=== PATIENT | male | born 1945 | race Caucasian/White ===

== ENCOUNTER 2017-05-19 18:51 | Observation (INO) ==
[2017-05-19] MEDS ORDERED: ONDANSETRON 4 MG/2 ML VIAL IV STA (20:28)
[2017-05-19] MEDS ORDERED: SODIUM CHLORIDE 0.9% 2,000 ML IV STA (20:28)
[2017-05-19 20:52] LABS: Albumin 4.9 G/DL (3.4-5.0); Bilirubin,Total 0.8 MG/DL (0.2-1.0); Calcium 10.5 MG/DL (8.5-10.1); Osmolality,Calculated 276.4 MOS/KG (273-304); Potassium 4.1 MMOL/L (3.5-5.1); Total Protein 9.8 G/DL (6.4-8.3)
[2017-05-19 21:05] LABS: Basophils # 0.1 10*3/uL (0.0-0.2); Basophils % 0.3 % (0.0-0.8); Eosinophils % 0.3 % (0.00-10.9); Hematocrit 57.2 VOL% (42.0-52.0); Hemoglobin 19.5 GM/DL (14.0-18.0); Immature Granulocytes % 0.8 %; Immature Granulocytes Absolute 0.13 #; Lymphocytes # 1.1 10*3/uL (1.4-4.0); Lymphocytes % 7.3 % (21.2-54.2); Mean Corpuscular HGB Conc 34.1 GM/DL (32-36); Mean Corpuscular Hemoglobin 31 PG (27-34); Mean Corpuscular Volume 90.6 FL (87-102); Mean Platelet Volume 9.8 FL (9.6-12.0); Monocytes % 6.6 % (1.7-12.7); Neutrophils % 84.7 % (38.7-73.9); Platelet Count 201 T/CUMM (130-400); Red Blood Count 6.31 MC/CUMM (3.8-5.5); Red Cell Distribution Width 14.6 % (9.3-17.3); White Blood Count 15.4 T/CUMM (4-12)
[2017-05-19 21:08] LABS: Lactic Acid 3.1 MMOL/L (0.4-2.0)
[2017-05-19 21:23] LABS: Apearance,Urine Slightly Hazy (Clear); Bilirubin,Urine Negative (Negative); Blood, Urine Negative (Negative); Glucose,Urine (UA) Negative (Negative); Hyaline Casts,Urine 12 /LPF (0-3); Ketones,Urine Negative (Negative); Mucus,Urine Occasional /LPF (Occasional); Nitrite,Urine Negative (Negative); Protein,Urine 100 MG/DL; RBC,Urine 2 /HPF (0-4); Squamous Epithelial Cell,Urine Occasional /HPF (0-10); Urine Color Amber (Yellow); Urine Specific Gravity 1.023 (1.001-1.035); Urine Urobilinogen < 2.0 EU/DL (0.2-1.0); WBC,Urine 2 /HPF (0-6)
[2017-05-19] MEDS ORDERED: ONDANSETRON 4 MG/2 ML VIAL ONE (21:23)
[2017-05-19] MEDS ORDERED: LORazepam 2 MG/1 ML VIAL IV STA (21:44)
[2017-05-19] MEDS ORDERED: LORazepam 2 MG/1 ML VIAL ONE (21:51)
[2017-05-19] MEDS ORDERED: ONDANSETRON 4 MG/2 ML VIAL IV PRN (22:22)
[2017-05-19 22:46] LABS: Band Neutrophils 3 % (0-10); Lymphocytes 10 % (20-55); Platelet Estimate Normal; Segmented Neutrophils 73 % (50-85); Total Cells Counted 100
[2017-05-19] MEDS ORDERED: NON-FORMULARY MEDICATION (Esomeprazole Magnesium [Esomeprazole] 20 MG) PO SCH (23:45)
[2017-05-20 00:42] LABS: Albumin 3.9 G/DL (3.4-5.0); Bilirubin,Total 0.7 MG/DL (0.2-1.0); Calcium 8.6 MG/DL (8.5-10.1); Magnesium 1.5 MG/DL (1.8-2.4); Osmolality,Calculated 283.8 MOS/KG (273-304); Potassium 4.1 MMOL/L (3.5-5.1); Total Protein 7.5 G/DL (6.4-8.3)
[2017-05-20] MEDS: SODIUM CHLORIDE 0.9% 1,000 ML IV SCH ×2 (01:16→18:49)
[2017-05-20 03:38] LABS: Basophils % 0.3 % (0.0-0.8); Eosinophils # 0.1 10*3/uL (0.0-0.87); Eosinophils % 0.4 % (0.00-10.9); Hematocrit 51.5 VOL% (42.0-52.0); Immature Granulocytes % 0.5 %; Immature Granulocytes Absolute 0.07 #; Lymphocytes # 1.7 10*3/uL (1.4-4.0); Lymphocytes % 12.6 % (21.2-54.2); Mean Corpuscular Hemoglobin 31 PG (27-34); Monocytes # 1.3 10*3/uL (0.11-0.8); Monocytes % 9.3 % (1.7-12.7); Neutrophils # 10.3 10*3/uL (1.4-7.4); Neutrophils % 76.9 % (38.7-73.9); Platelet Count 171 T/CUMM (130-400); Red Blood Count 5.48 MC/CUMM (3.8-5.5); Red Cell Distribution Width 14.2 % (9.3-17.3); White Blood Count 13.4 T/CUMM (4-12)
[2017-05-20 04:48] LABS: Hypochromasia 1+; Lymphocytes 11 % (20-55); Platelet Estimate Normal; Segmented Neutrophils 80 % (50-85); Total Cells Counted 100
[2017-05-20] MEDS: METOPROLOL TARTRATE 50 MG TABLET PO SCH (09:02)
[2017-05-20] MEDS: PANTOPRAZOLE 40 MG TABLET PO SCH (09:02)
[2017-05-20] MEDS ORDERED: ASPIRIN EC 81 MG TABLET PO SCH (18:00)
[2017-05-20] MEDS ORDERED: TAMSULOSIN 0.4 MG CAPSULE PO SCH (18:00)
[2017-05-20] MEDS: CLORAZEPATE 7.5 MG TABLET PO PRN (20:45)
[2017-05-21] MEDS: SODIUM CHLORIDE 0.9% 1,000 ML IV SCH ×2 (01:00→02:24)
[2017-05-21 05:57] LABS: Basophils % 0.5 % (0.0-0.8); Eosinophils # 0.3 10*3/uL (0.0-0.87); Eosinophils % 3.6 % (0.00-10.9); Hematocrit 46.5 VOL% (42.0-52.0); Hemoglobin 15.9 GM/DL (14.0-18.0); Immature Granulocytes % 0.2 %; Immature Granulocytes Absolute 0.02 #; Lymphocytes # 1.8 10*3/uL (1.4-4.0); Lymphocytes % 21.3 % (21.2-54.2); Mean Corpuscular HGB Conc 34.2 GM/DL (32-36); Mean Corpuscular Hemoglobin 31 PG (27-34); Mean Corpuscular Volume 91.2 FL (87-102); Mean Platelet Volume 9.5 FL (9.6-12.0); Monocytes % 11.6 % (1.7-12.7); Neutrophils # 5.2 10*3/uL (1.4-7.4); Neutrophils % 62.8 % (38.7-73.9); Platelet Count 143 T/CUMM (130-400); White Blood Count 8.3 T/CUMM (4-12)
[2017-05-21 06:46] LABS: Calcium 8.3 MG/DL (8.5-10.1); Osmolality,Calculated 284.7 MOS/KG (273-304); Potassium 3.9 MMOL/L (3.5-5.1)
[2017-05-21] MEDS: PANTOPRAZOLE 40 MG TABLET PO SCH (08:15)
[2017-05-21] MEDS: CLORAZEPATE 7.5 MG TABLET PO PRN (08:15)
[2017-05-21] MEDS: METOPROLOL TARTRATE 50 MG TABLET PO SCH (08:15)
[2017-05-21 09:01] VITALS: BP 125/75
== END 2017-05-21 11:37 | disposition home or self-care (01) ==
LOC: N.ED 18:51 → N.EDINP 18:51 → N.5E 22:49

== ENCOUNTER 2019-10-24 11:27 | Inpatient (IN) ==
[2019-10-24] MEDS ORDERED: SODIUM CHLORIDE 0.9% 1,000 ML IV STA ×2 (11:58→12:37)
[2019-10-24 13:12] LABS: Basophils % 0.5 % (0.0-0.8); Eosinophils # 0.2 10*3/uL (0.0-0.87); Eosinophils % 1.8 % (0.00-10.9); Hematocrit 43.5 VOL% (42.0-52.0); Hemoglobin 14.6 GM/DL (14.0-18.0); Immature Granulocytes % 0.7 %; Immature Granulocytes Absolute 0.06 #; Lymphocytes # 1.1 10*3/uL (1.4-4.0); Lymphocytes % 13.2 % (21.2-54.2); Mean Corpuscular HGB Conc 33.6 GM/DL (32-36); Mean Platelet Volume 8.8 FL (9.6-12.0); Monocytes % 9.9 % (1.7-12.7); Neutrophils % 73.9 % (38.7-73.9); Platelet Count 147 T/CUMM (130-400); Red Blood Count 4.73 MC/CUMM (3.8-5.5); Red Cell Distribution Width 13.1 % (9.3-17.3); White Blood Count 8.5 T/CUMM (4-12)
[2019-10-24 13:24] LABS: PT Patient Result 10.8 SECS (9.8-11.9)
[2019-10-24 13:39] LABS: Albumin 4.3 G/DL (3.4-5.0); Bilirubin,Total 0.5 MG/DL (0.2-1.0); Calcium 9.8 MG/DL (8.5-10.1); Osmolality,Calculated 300.4 MOS/KG (273-304); Thyroid Stimulating Hormone 1.07 uIU/ml (0.358-3.74); Total Protein 8.4 G/DL (6.4-8.3)
[2019-10-24 14:54] LABS: Apearance,Urine CLEAR (Clear); Bacteria,Urine Occasional /HPF (Few); Bilirubin,Urine Negative (Negative); Blood, Urine Negative (Negative); Glucose,Urine (UA) Negative (Negative); Ketones,Urine Negative (Negative); Mucus,Urine Occasional /LPF (Occasional); Nitrite,Urine Negative (Negative); Protein,Urine Negative; RBC,Urine 1 /HPF (0-4); Urine Color Yellow (Yellow); Urine Specific Gravity 1.014 (1.001-1.035); Urine Urobilinogen < 2.0 EU/DL (0.2-1.0); WBC,Urine 1 /HPF (0-6)
[2019-10-24] MEDS ORDERED: ONDANSETRON 4 MG/2 ML VIAL IV PRN (15:01)
[2019-10-24] MEDS ORDERED: DEXTROSE 50% 25 GM/50 ML VIAL IV PRN (15:01)
[2019-10-24] MEDS ORDERED: GLUCAGON 1 MG VIAL IM PRN (15:01)
[2019-10-24] MEDS: PANTOPRAZOLE 40 MG VIAL IV SCH (16:36)
[2019-10-24] MEDS: SODIUM CHLORIDE 0.9% 1,000 ML IV SCH ×2 (16:36→23:26)
[2019-10-25 05:01] LABS: Basophils % 0.7 % (0.0-0.8); Eosinophils # 0.2 10*3/uL (0.0-0.87); Eosinophils % 3.7 % (0.00-10.9); Hematocrit 34.3 VOL% (42.0-52.0); Hemoglobin 11.4 GM/DL (14.0-18.0); Immature Granulocytes % 0.7 %; Immature Granulocytes Absolute 0.04 #; Lymphocytes # 1.1 10*3/uL (1.4-4.0); Lymphocytes % 18.4 % (21.2-54.2); Mean Corpuscular HGB Conc 33.2 GM/DL (32-36); Mean Corpuscular Volume 93.2 FL (87-102); Mean Platelet Volume 8.9 FL (9.6-12.0); Monocytes % 11.6 % (1.7-12.7); Neutrophils % 64.9 % (38.7-73.9); Platelet Count 126 T/CUMM (130-400); Red Blood Count 3.68 MC/CUMM (3.8-5.5); Red Cell Distribution Width 13.2 % (9.3-17.3); White Blood Count 5.9 T/CUMM (4-12)
[2019-10-25 05:24] LABS: Calcium 8.5 MG/DL (8.5-10.1); Osmolality,Calculated 306.1 MOS/KG (273-304)
[2019-10-25] MEDS: PANTOPRAZOLE 40 MG VIAL IV SCH (08:55)
[2019-10-25] MEDS: SODIUM CHLORIDE 0.9% 1,000 ML IV SCH ×3 (08:55→23:52)
[2019-10-26] MEDS: SODIUM CHLORIDE 0.9% 1,000 ML IV SCH ×3 (08:12→18:10)
[2019-10-26 08:38] LABS: Calcium 8.4 MG/DL (8.5-10.1); Osmolality,Calculated 297.7 MOS/KG (273-304)
[2019-10-26] MEDS ORDERED: propofoL 200 MG/20 ML VIAL IV ONE (09:00)
[2019-10-26] MEDS ORDERED: LIDOCAINE 2% 5 ML VIAL ONE (09:00)
[2019-10-26] MEDS: PANTOPRAZOLE 40 MG VIAL IV SCH (09:01)
[2019-10-26] MEDS ORDERED: MAGNESIUM SULF RIDER 4 GM in PREMIX 1 EACH IV PRN (12:01)
[2019-10-26] MEDS ORDERED: MAGNESIUM SULF RIDER 2 GM in PREMIX 1 EACH IV PRN (12:01)
[2019-10-27 06:36] LABS: Basophils % 0.6 % (0.0-0.8); Eosinophils # 0.3 10*3/uL (0.0-0.87); Hematocrit 31.9 VOL% (42.0-52.0); Hemoglobin 10.5 GM/DL (14.0-18.0); Immature Granulocytes % 0.4 %; Immature Granulocytes Absolute 0.03 #; Lymphocytes # 1.2 10*3/uL (1.4-4.0); Lymphocytes % 17.3 % (21.2-54.2); Mean Corpuscular HGB Conc 32.9 GM/DL (32-36); Mean Corpuscular Volume 93.5 FL (87-102); Mean Platelet Volume 8.9 FL (9.6-12.0); Monocytes % 9.2 % (1.7-12.7); Neutrophils % 68.5 % (38.7-73.9); Platelet Count 118 T/CUMM (130-400); Red Blood Count 3.41 MC/CUMM (3.8-5.5); Red Cell Distribution Width 13.3 % (9.3-17.3); White Blood Count 6.8 T/CUMM (4-12)
[2019-10-27 06:50] LABS: Calcium 8.5 MG/DL (8.5-10.1); Osmolality,Calculated 288.8 MOS/KG (273-304)
[2019-10-27] MEDS: PANTOPRAZOLE 40 MG VIAL IV SCH (09:46)
[2019-10-27] MEDS: SODIUM CHLORIDE 0.9% 1,000 ML IV SCH ×2 (09:48→11:02)
[2019-10-27 17:23] VITALS: BP 125/78
== END 2019-10-27 11:05 | disposition home or self-care (01) | DRG 684 ==
LOC: N.ED 11:27 → N.EDINP 15:01 → N.3E 16:20
PROVIDERS: ADMIT Internal Medicine Geriatric Medicine; ATTEND Internal Medicine Geriatric Medicine

== ENCOUNTER 2021-04-15 10:35 | Observation (INO) ==
[2021-04-15] MEDS ORDERED: ASPIRIN 325 MG TABLET PO STA (11:27)
[2021-04-15] MEDS ORDERED: NITROGLYCERIN SL 0.4 MG TABLET SL PRN (11:27)
[2021-04-15] MEDS ORDERED: METOPROLOL TARTRATE 5 MG/5 ML VIAL IV STA (11:27)
[2021-04-15 11:40] LABS: Basophils % 0.4 % (0.0-0.8); Eosinophils # 0.2 10*3/uL (0.0-0.87); Eosinophils % 2.4 % (0.00-10.9); Hematocrit 49.9 VOL% (42.0-52.0); Hemoglobin 15.4 GM/DL (14.0-18.0); Immature Granulocytes % 0.4 %; Immature Granulocytes Absolute 0.03 #; Lymphocytes # 2.2 10*3/uL (1.4-4.0); Mean Corpuscular HGB Conc 30.9 GM/DL (32-36); Mean Corpuscular Volume 85.6 FL (87-102); Mean Platelet Volume 9.6 FL (9.6-12.0); Monocytes % 10.1 % (1.7-12.7); Neutrophils % 59.7 % (38.7-73.9); Platelet Count 153 T/CUMM (130-400); Red Blood Count 5.83 MC/CUMM (3.8-5.5); Red Cell Distribution Width 19.6 % (9.3-17.3)
[2021-04-15 11:49] LABS: Albumin 3.9 G/DL (3.4-5.0); Bilirubin,Total 0.4 MG/DL (0.20-1.00); Calcium 9.4 MG/DL (8.5-10.1); Total Protein 7.5 G/DL (6.4-8.2)
[2021-04-15] MEDS ORDERED: ACETAMINOPHEN 325 MG TABLET PO PRN (15:46)
[2021-04-15] MEDS ORDERED: MORPHINE 2 MG/1 ML SYRINGE IV PRN (15:46)
[2021-04-15] MEDS ORDERED: ONDANSETRON 4 MG/2 ML VIAL IV PRN (15:46)
[2021-04-15] MEDS ORDERED: COLCHICINE 0.6 MG CAPSULE PO PRN (15:50)
[2021-04-15] MEDS ORDERED: dimenhyDRINATE 50 MG TABLET PO PRN (15:50)
[2021-04-15] MEDS ORDERED: CLOPIDOGREL 300 MG TABLET PO ONE (15:50)
[2021-04-15] MEDS ORDERED: oxyCODONE/ACETAMINOPHEN 5-325 MG TABLET PO PRN (15:50)
[2021-04-15] MEDS: ENOXAPARIN 100 MG/ML SYRINGE SUBCUT SCH (16:43)
[2021-04-15] MEDS: NITROGLYCERIN 2% OINT 1 INCH/GM PACK TOP SCH ×2 (17:36→23:28)
[2021-04-15] MEDS: traZODone 50 MG TABLET PO SCH (20:16)
[2021-04-15] MEDS: TAMSULOSIN 0.4 MG CAPSULE PO SCH (20:16)
[2021-04-15] MEDS: MULTIVITAMIN (CENTRUM) TABLET PO SCH (20:16)
[2021-04-15] MEDS: allopurinoL 300 MG TABLET PO SCH (20:16)
[2021-04-15] MEDS: BISOPROLOL 5 MG TABLET PO SCH (20:16)
[2021-04-15] MEDS: ROSUVASTATIN 10 MG TABLET PO SCH (20:16)
[2021-04-15] MEDS: PANTOPRAZOLE 40 MG TABLET PO SCH (20:26)
[2021-04-15] MEDS ORDERED: ASPIRIN EC 81 MG TABLET PO SCH (21:00)
[2021-04-15] MEDS ORDERED: SODIUM CHLORIDE 0.9% 1,000 ML IV SCH (22:00)
[2021-04-16] MEDS: ENOXAPARIN 100 MG/ML SYRINGE SUBCUT SCH ×2 (03:27→16:22)
[2021-04-16] MEDS: NITROGLYCERIN 2% OINT 1 INCH/GM PACK TOP SCH ×4 (06:20→18:30)
[2021-04-16 06:30] LABS: Basophils # 0.1 10*3/uL (0.0-0.2); Basophils % 0.9 % (0.0-0.8); Eosinophils # 0.2 10*3/uL (0.0-0.87); Eosinophils % 3.3 % (0.00-10.9); Hematocrit 39.8 VOL% (42.0-52.0); Immature Granulocytes % 0.6 %; Immature Granulocytes Absolute 0.03 #; Lymphocytes # 1.4 10*3/uL (1.4-4.0); Lymphocytes % 25.2 % (21.2-54.2); Mean Corpuscular HGB Conc 31.9 GM/DL (32-36); Mean Corpuscular Volume 85.8 FL (87-102); Mean Platelet Volume 9.4 FL (9.6-12.0); Monocytes % 9.6 % (1.7-12.7); Neutrophils % 60.4 % (38.7-73.9); Platelet Count 163 T/CUMM (130-400); Red Cell Distribution Width 19.2 % (9.3-17.3)
[2021-04-16 06:31] LABS: Hemoglobin 12.7 GM/DL (14.0-18.0); Red Blood Count 4.64 MC/CUMM (3.8-5.5); White Blood Count 5.4 T/CUMM (4-12)
[2021-04-16 06:59] LABS: Osmolality,Calculated 274.8 MOS/KG (273-304); Potassium 3.4 MMOL/L (3.5-5.1); Risk Ratio 3.69; VLDL Cholesterol 72.8 MG/DL
[2021-04-16] MEDS ORDERED: POTASSIUM CHLORIDE 20 MEQ TABLET PO ONE (07:45)
[2021-04-16] MEDS ORDERED: MAGNESIUM SULF RIDER 2 GM/50 ML PREMIX IV ONE (07:45)
[2021-04-16] MEDS: Cyanocobalamin (Vitamin B-12) [Vitamin B-12] 5,000 mcg Tablet, S SL SCH (08:01)
[2021-04-16] MEDS: MAGNESIUM OXIDE 400 MG TABLET PO SCH (08:52)
[2021-04-16] MEDS: BISOPROLOL 5 MG TABLET PO SCH ×2 (08:53→20:21)
[2021-04-16] MEDS: CLOPIDOGREL 75 MG TABLET PO SCH (08:53)
[2021-04-16] MEDS ORDERED: DIAZEPAM 5 MG TABLET PO ONE (13:03)
[2021-04-16] MEDS ORDERED: diphenhydrAMINE CAP 25 MG CAPSULE PO ONE (13:03)
[2021-04-16] MEDS ORDERED: MIDAZOLAM 2 MG/2 ML VIAL ONE (16:38)
[2021-04-16] MEDS ORDERED: fentaNYL 100 MCG/2 ML VIAL ONE (16:39)
[2021-04-16] MEDS ORDERED: HEPARIN 5,000 UNIT/1 ML VIAL ONE (16:39)
[2021-04-16] MEDS ORDERED: SODIUM CHLORIDE 0.9% 1,000 ML IV SCH (19:00)
[2021-04-16] MEDS: MULTIVITAMIN (CENTRUM) TABLET PO SCH (20:21)
[2021-04-16] MEDS: ROSUVASTATIN 10 MG TABLET PO SCH (20:21)
[2021-04-16] MEDS: traZODone 50 MG TABLET PO SCH (20:22)
[2021-04-16] MEDS: allopurinoL 300 MG TABLET PO SCH (20:22)
[2021-04-16] MEDS: TAMSULOSIN 0.4 MG CAPSULE PO SCH (20:22)
[2021-04-16] MEDS: PANTOPRAZOLE 40 MG TABLET PO SCH (20:22)
[2021-04-16] MEDS ORDERED: ASPIRIN EC 81 MG TABLET PO SCH (21:00)
[2021-04-17 06:31] LABS: Basophils % 0.3 % (0.0-0.8); Eosinophils # 0.1 10*3/uL (0.0-0.87); Eosinophils % 1.8 % (0.00-10.9); Hemoglobin 12.4 GM/DL (14.0-18.0); Immature Granulocytes % 1.2 %; Immature Granulocytes Absolute 0.09 #; Lymphocytes % 13.4 % (21.2-54.2); Mean Corpuscular Volume 85.7 FL (87-102); Monocytes % 9.1 % (1.7-12.7); Neutrophils % 74.2 % (38.7-73.9); Platelet Count 143 T/CUMM (130-400); Red Blood Count 4.67 MC/CUMM (3.8-5.5); Red Cell Distribution Width 18.8 % (9.3-17.3); White Blood Count 7.3 T/CUMM (4-12)
[2021-04-17 06:54] LABS: Calcium 8.8 MG/DL (8.5-10.1); Osmolality,Calculated 274.7 MOS/KG (273-304); Potassium 3.9 MMOL/L (3.5-5.1)
[2021-04-17 07:01] LABS: Lymphocytes 12 % (20-55); Platelet Estimate Normal; Segmented Neutrophils 79 % (50-85); Total Cells Counted 100
[2021-04-17] MEDS ORDERED: amLODIPine 5 MG TABLET PO SCH (09:00)
[2021-04-17] MEDS: BISOPROLOL 5 MG TABLET PO SCH (09:42)
[2021-04-17] MEDS: CLOPIDOGREL 75 MG TABLET PO SCH (09:42)
[2021-04-17] MEDS: Cyanocobalamin (Vitamin B-12) [Vitamin B-12] 5,000 mcg Tablet, S SL SCH (09:43)
[2021-04-17] MEDS: MAGNESIUM OXIDE 400 MG TABLET PO SCH (09:43)
[2021-04-17] MEDS ORDERED: ISOSORBIDE MONONITRATE 20 MG TABLET PO SCH (09:48)
[2021-04-17 12:17] VITALS: BP 119/61
== END 2021-04-17 14:40 | disposition home or self-care (01) ==
LOC: EDBD → EDUNIT# → N.ED 10:35 → N.EDINP 10:35 → N.TELES 16:55
PROVIDERS: ADMIT Internal Medicine Cardiovascular Disease; ATTEND Internal Medicine Cardiovascular Disease

== ENCOUNTER 2021-05-07 05:59 | Inpatient (IN) ==
[2021-05-07] MEDS ORDERED: DIAZEPAM 5 MG TABLET PO ONE (06:00)
[2021-05-07] MEDS ORDERED: diphenhydrAMINE CAP 50 MG CAPSULE PO ONE (06:00)
[2021-05-07] MEDS ORDERED: PHENYLEPHRINE 1 MG/10 ML SYRINGE IV ONE (06:43)
[2021-05-07] MEDS ORDERED: EPINEPHrine 1 MG/ML VIAL ONE (06:43)
[2021-05-07] MEDS ORDERED: NITROGLYCERIN DRIP 0 MG/0 ML BOTTLE IV ONE (06:43)
[2021-05-07 06:48] VITALS: BP 145/81
[2021-05-07] MEDS ORDERED: HEPARIN/NACL 0.9% 2 UNITS/ML 2,000 UNIT/1,000 ML BAG IV ONE (06:53)
[2021-05-07] MEDS ORDERED: LIDOCAINE 1% 20 ML VIAL ONE (06:53)
[2021-05-07] MEDS ORDERED: PHENYLEPHRINE 10 MG/1 ML VIAL IV ONE (07:16)
[2021-05-07] MEDS ORDERED: NOREPINEPHRINE 4 MG/4 ML VIAL IV ONE (07:16)
[2021-05-07] MEDS ORDERED: HEPARIN/NACL 0.9% 2 UNITS/ML 1,000 UNIT/500 ML BAG IV ONE ×3 (07:43→08:16)
[2021-05-07] MEDS ORDERED: HEPARIN 5,000 UNIT/1 ML VIAL ONE ×2 (07:55→08:19)
[2021-05-07] MEDS ORDERED: ZALEPLON 5 MG CAPSULE PO PRN (09:05)
[2021-05-07] MEDS ORDERED: ONDANSETRON 4 MG/2 ML VIAL IV PRN (09:05)
[2021-05-07] MEDS ORDERED: ACETAMINOPHEN 325 MG TABLET PO PRN (09:05)
[2021-05-07] MEDS ORDERED: COLCHICINE 0.6 MG CAPSULE PO PRN (09:07)
[2021-05-07] MEDS ORDERED: NITROGLYCERIN SL 0.4 MG TABLET SL PRN (09:07)
[2021-05-07] MEDS ORDERED: MECLIZINE 12.5 MG TABLET PO PRN (09:07)
[2021-05-07] MEDS ORDERED: ACETAMINOPHEN 500 MG TABLET PO PRN (09:07)
[2021-05-07] MEDS ORDERED: CLOPIDOGREL 300 MG TABLET PO ONE (09:08)
[2021-05-07 09:32] LABS: Bacteria,Urine Occasional /HPF (Few); Bilirubin,Urine Negative (Negative); Blood, Urine Small mg/dL (Negative); Glucose,Urine (UA) Negative (Negative); Ketones,Urine Negative (Negative); Mucus,Urine Occasional /LPF (Occasional); Nitrite,Urine Negative (Negative); Protein,Urine Negative; RBC,Urine 1 /HPF (0-4); Sperm,Urine Occasional /HPF (Negative); Urine Appearance CLEAR (Clear); Urine Color Yellow (Yellow); Urine Specific Gravity 1.039 (1.001-1.035); Urine Urobilinogen < 2.0 EU/DL (0.2-1.0)
[2021-05-07] MEDS ORDERED: ePHEDrine 50 MG/ML VIAL ONE (10:00)
[2021-05-07] MEDS ORDERED: fentaNYL 100 MCG/2 ML VIAL ONE (10:00)
[2021-05-07] MEDS ORDERED: SODIUM CHLORIDE 0.9% 100 ML IV ONE (10:01)
[2021-05-07] MEDS ORDERED: SODIUM CHLORIDE 0.9% 250 ML IV ONE (10:01)
[2021-05-07] MEDS ORDERED: ETOMIDATE 40 MG/20 ML VIAL IV ONE (10:02)
[2021-05-07] MEDS ORDERED: ROCURONIUM 50 MG/5 ML VIAL IV ONE (10:02)
[2021-05-07] MEDS ORDERED: LIDOCAINE 2% 5 ML VIAL ONE (10:02)
[2021-05-07] MEDS ORDERED: ONDANSETRON 4 MG/2 ML VIAL ONE ×2 (10:02→10:28)
[2021-05-07] MEDS ORDERED: SUCCINYLCHOLINE 200 MG/10 ML VIAL ONE (10:02)
[2021-05-07] MEDS ORDERED: GLYCOPYRROLATE 0.4 MG/2 ML VIAL ONE (10:02)
[2021-05-07] MEDS ORDERED: NEOSTIGMINE 10 MG/10 ML VIAL ONE (10:02)
[2021-05-07] MEDS: SODIUM CHLORIDE 0.9% 1,000 ML IV SCH ×4 (10:14→23:23)
[2021-05-07] MEDS ORDERED: CLOPIDOGREL 300 MG TABLET ONE (10:19)
[2021-05-07] MEDS ORDERED: DEXAMETHASONE 4 MG/1 ML VIAL ONE (10:28)
[2021-05-07] MEDS ORDERED: MORPHINE 10 MG/1 ML VIAL ONE (10:59)
[2021-05-07] MEDS: MORPHINE 10 MG/1 ML VIAL IV PRN ×3 (11:08→21:29)
[2021-05-07] MEDS ORDERED: INFLUENZA VIRUS VACCINE 0.5 ML SYRINGE IM ONE (14:45)
[2021-05-07] MEDS: ISOSORBIDE MONONITRATE 20 MG TABLET PO SCH (16:33)
[2021-05-07] MEDS ORDERED: RANOLAZINE 500 MG TABLET PO SCH (21:00)
[2021-05-07] MEDS ORDERED: allopurinoL 300 MG TABLET PO SCH (21:00)
[2021-05-07] MEDS ORDERED: ROSUVASTATIN 10 MG TABLET PO SCH (21:00)
[2021-05-07] MEDS ORDERED: TAMSULOSIN 0.4 MG CAPSULE PO SCH (21:00)
[2021-05-07] MEDS ORDERED: traZODone 50 MG TABLET PO SCH (21:00)
[2021-05-07] MEDS: ASPIRIN EC 81 MG TABLET PO SCH (21:16)
[2021-05-07] MEDS: MAGNESIUM CHLORIDE 64 MG TABLET PO SCH (21:17)
[2021-05-07] MEDS: OMEPRAZOLE ODT 20 MG TABLET PO SCH (21:17)
[2021-05-07] MEDS: BISOPROLOL 5 MG TABLET PO SCH (21:17)
[2021-05-08 05:46] LABS: Basophils % 0.2 % (0.0-0.8); Eosinophils % 0.1 % (0.00-10.9); Hematocrit 35.2 VOL% (42.0-52.0); Hemoglobin 10.9 GM/DL (14.0-18.0); Immature Granulocytes % 0.5 %; Immature Granulocytes Absolute 0.06 #; Lymphocytes # 0.7 10*3/uL (1.4-4.0); Lymphocytes % 6.6 % (21.2-54.2); Mean Corpuscular Volume 87.6 FL (87-102); Mean Platelet Volume 9.7 FL (9.6-12.0); Monocytes % 5.1 % (1.7-12.7); Neutrophils % 87.5 % (38.7-73.9); Platelet Count 123 T/CUMM (130-400); Red Blood Count 4.02 MC/CUMM (3.8-5.5); Red Cell Distribution Width 17.1 % (9.3-17.3); White Blood Count 11.1 T/CUMM (4-12)
[2021-05-08 06:01] LABS: Calcium 8.4 MG/DL (8.5-10.1); Osmolality,Calculated 275.7 MOS/KG (273-304)
[2021-05-08] MEDS: SODIUM CHLORIDE 0.9% 1,000 ML IV SCH (07:21)
[2021-05-08] MEDS: OMEPRAZOLE ODT 20 MG TABLET PO SCH (08:19)
[2021-05-08] MEDS: ISOSORBIDE MONONITRATE 20 MG TABLET PO SCH (08:21)
[2021-05-08] MEDS: MAGNESIUM CHLORIDE 64 MG TABLET PO SCH (08:21)
[2021-05-08] MEDS: ASPIRIN EC 81 MG TABLET PO SCH (08:21)
[2021-05-08] MEDS: BISOPROLOL 5 MG TABLET PO SCH (08:21)
[2021-05-08] MEDS ORDERED: RANOLAZINE 500 MG TABLET PO SCH (09:00)
[2021-05-08] MEDS ORDERED: CLOPIDOGREL 75 MG TABLET PO SCH (09:00)
[2021-05-08] MEDS ORDERED: MULTIVITAMIN (CENTRUM) TABLET PO SCH (09:00)
[2021-05-08] MEDS ORDERED: CYANOCOBALAMIN 500 MCG TABLET PO SCH (09:00)
[2021-05-08] MEDS ORDERED: INFLUENZA VIRUS VACCINE 0.5 ML SYRINGE IM ONE (12:00)
== END 2021-05-08 12:23 | disposition home or self-care (01) | DRG 217 ==
LOC: N.CC 06:00 → N.CL 06:05 → N.CC 13:43
PROVIDERS: ADMIT Internal Medicine Cardiovascular Disease; ATTEND Internal Medicine Cardiovascular Disease
PROC: CLCCHCL (ICD-10-PCS; 2021-05-07 07:45)

== ENCOUNTER 2021-06-10 16:30 | Observation (INO) ==
[2021-06-10] MEDS ORDERED: NITROGLYCERIN SL 0.4 MG TABLET SL STA (17:08)
[2021-06-10 17:35] LABS: Basophils % 0.5 % (0.0-0.8); Eosinophils # 0.2 10*3/uL (0.0-0.87); Eosinophils % 3.1 % (0.00-10.9); Hematocrit 37.7 VOL% (42.0-52.0); Hemoglobin 12.2 GM/DL (14.0-18.0); Immature Granulocytes % 0.5 %; Immature Granulocytes Absolute 0.03 #; Lymphocytes # 1.1 10*3/uL (1.4-4.0); Lymphocytes % 19.4 % (21.2-54.2); Mean Corpuscular HGB Conc 32.4 GM/DL (32-36); Mean Corpuscular Volume 86.1 FL (87-102); Mean Platelet Volume 9.2 FL (9.6-12.0); Monocytes % 10.2 % (1.7-12.7); Neutrophils % 66.3 % (38.7-73.9); Platelet Count 142 T/CUMM (130-400); Red Blood Count 4.38 MC/CUMM (3.8-5.5); Red Cell Distribution Width 15.3 % (9.3-17.3); White Blood Count 5.8 T/CUMM (4-12)
[2021-06-10 17:46] LABS: INR 1.1; PT Patient Result 11.8 SECS (10.5-12.0); Partial Thromboplastin Time 30.7 SECS (23.8-32.1)
[2021-06-10 18:05] LABS: Albumin 3.5 G/DL (3.4-5.0); Bilirubin,Total 0.5 MG/DL (0.20-1.00); Calcium 8.7 MG/DL (8.5-10.1); Potassium 3.9 MMOL/L (3.5-5.1); Total Protein 6.4 G/DL (6.4-8.2)
[2021-06-10] MEDS ORDERED: GLUCAGON 1 MG VIAL IM PRN (18:47)
[2021-06-10] MEDS ORDERED: hydrALAZINE 20 MG/1 ML VIAL IV PRN (18:47)
[2021-06-10] MEDS ORDERED: ONDANSETRON 4 MG/2 ML VIAL IV PRN (18:47)
[2021-06-10] MEDS ORDERED: DEXTROSE 50% 25 GM/50 ML SYRINGE IV PRN (18:47)
[2021-06-10 19:19] LABS: Thyroid Stimulating Hormone 0.635 uIU/ml (0.358-3.74)
[2021-06-10] MEDS ORDERED: RANOLAZINE 500 MG TABLET PO SCH (21:00)
[2021-06-10] MEDS ORDERED: ROSUVASTATIN 10 MG TABLET PO SCH (21:00)
[2021-06-10] MEDS ORDERED: allopurinoL 300 MG TABLET PO SCH (21:00)
[2021-06-10] MEDS ORDERED: ENOXAPARIN 40 MG/0.4 ML SYRINGE SUBCUT SCH (21:00)
[2021-06-10] MEDS ORDERED: traZODone 50 MG TABLET PO SCH (21:00)
[2021-06-11] MEDS: ASPIRIN EC 81 MG TABLET PO SCH ×2 (01:09→08:35)
[2021-06-11] MEDS: BISOPROLOL 5 MG TABLET PO SCH ×2 (01:10→08:35)
[2021-06-11] MEDS: TAMSULOSIN 0.4 MG CAPSULE PO SCH ×2 (01:10→08:35)
[2021-06-11 05:37] LABS: Basophils # 0.1 10*3/uL (0.0-0.2); Basophils % 0.9 % (0.0-0.8); Eosinophils # 0.2 10*3/uL (0.0-0.87); Eosinophils % 4.2 % (0.00-10.9); Hematocrit 40.3 VOL% (42.0-52.0); Hemoglobin 12.7 GM/DL (14.0-18.0); Immature Granulocytes % 0.4 %; Immature Granulocytes Absolute 0.02 #; Lymphocytes # 1.2 10*3/uL (1.4-4.0); Lymphocytes % 22.4 % (21.2-54.2); Mean Corpuscular HGB Conc 31.5 GM/DL (32-36); Mean Corpuscular Volume 86.5 FL (87-102); Mean Platelet Volume 9.5 FL (9.6-12.0); Monocytes % 11.8 % (1.7-12.7); Neutrophils % 60.3 % (38.7-73.9); Platelet Count 131 T/CUMM (130-400); Red Blood Count 4.66 MC/CUMM (3.8-5.5); Red Cell Distribution Width 15.4 % (9.3-17.3); White Blood Count 5.5 T/CUMM (4-12)
[2021-06-11 06:09] LABS: Calcium 8.7 MG/DL (8.5-10.1); Osmolality,Calculated 274.7 MOS/KG (273-304); Potassium 3.8 MMOL/L (3.5-5.1); Risk Ratio 2.33; VLDL Cholesterol 38.8 MG/DL
[2021-06-11] MEDS ORDERED: ISOSORBIDE MONONITRATE 20 MG TABLET PO SCH (08:00)
[2021-06-11] MEDS ORDERED: CLOPIDOGREL 75 MG TABLET PO SCH (09:00)
[2021-06-11] MEDS ORDERED: PANTOPRAZOLE 40 MG TABLET PO SCH (09:00)
[2021-06-11] MEDS ORDERED: amLODIPine 5 MG TABLET PO SCH (09:00)
[2021-06-11] MEDS ORDERED: MAGNESIUM SULF RIDER 4 GM/100 ML PREMIX IV PRN (12:13)
[2021-06-11] MEDS ORDERED: MAGNESIUM SULF RIDER 2 GM/50 ML PREMIX IV PRN (12:13)
[2021-06-11 13:26] VITALS: BP 121/61
[2021-06-11] MEDS ORDERED: GABAPENTIN 100 MG CAPSULE PO SCH (15:00)
[2021-06-11] MEDS ORDERED: RANOLAZINE 500 MG TABLET PO SCH (21:00)
== END 2021-06-11 15:48 | disposition home or self-care (01) ==
LOC: N.ED 16:30 → N.EDINP 16:30 → N.TELES 20:19
PROVIDERS: ADMIT Internal Medicine; ATTEND Internal Medicine

== ENCOUNTER 2021-10-05 13:43 | Observation (INO) ==
[2021-10-05] MEDS ORDERED: ASPIRIN 325 MG TABLET PO STA (15:03)
[2021-10-05] MEDS ORDERED: NITROGLYCERIN SL 0.4 MG TABLET SL PRN ×2 (15:03→17:09)
[2021-10-05 15:15] LABS: Basophils % 0.4 % (0.0-0.8); Eosinophils # 0.2 10*3/uL (0.0-0.87); Hematocrit 42.3 VOL% (42.0-52.0); Hemoglobin 13.8 GM/DL (14.0-18.0); Immature Granulocytes % 0.2 %; Immature Granulocytes Absolute 0.01 #; Lymphocytes # 0.8 10*3/uL (1.4-4.0); Lymphocytes % 15.5 % (21.2-54.2); Mean Corpuscular HGB Conc 32.6 GM/DL (32-36); Mean Corpuscular Volume 92.8 FL (87-102); Mean Platelet Volume 9.3 FL (9.6-12.0); Monocytes # 0.5 10*3/uL (0.11-0.8); Monocytes % 9.5 % (1.7-12.7); Neutrophils % 71.4 % (38.7-73.9); Platelet Count 142 T/CUMM (130-400); Red Blood Count 4.56 MC/CUMM (3.8-5.5); Red Cell Distribution Width 15.3 % (9.3-17.3); White Blood Count 5.4 T/CUMM (4-12)
[2021-10-05 15:22] LABS: Calcium 9.2 MG/DL (8.5-10.1); Osmolality,Calculated 274.8 MOS/KG (273-304); Potassium 3.9 MMOL/L (3.5-5.1)
[2021-10-05] MEDS ORDERED: ONDANSETRON 4 MG/2 ML VIAL IV PRN (17:07)
[2021-10-05] MEDS ORDERED: MAGNESIUM SULF RIDER 2 GM/50 ML PREMIX IV PRN (17:07)
[2021-10-05] MEDS ORDERED: MORPHINE 2 MG/1 ML SYRINGE IV PRN (17:07)
[2021-10-05] MEDS ORDERED: MAGNESIUM SULF RIDER 4 GM/100 ML PREMIX IV PRN (17:07)
[2021-10-05] MEDS ORDERED: ACETAMINOPHEN 500 MG TABLET PO PRN (17:10)
[2021-10-05] MEDS: ENOXAPARIN 80 MG/0.8 ML SYRINGE SUBCUT SCH (17:58)
[2021-10-05] MEDS: SODIUM CHLORIDE 0.45% 1,000 ML IV SCH (17:58)
[2021-10-05] MEDS: GABAPENTIN 100 MG CAPSULE PO SCH (21:00)
[2021-10-05] MEDS ORDERED: ASPIRIN EC 81 MG TABLET PO SCH (21:00)
[2021-10-05] MEDS ORDERED: TAMSULOSIN 0.4 MG CAPSULE PO SCH (21:00)
[2021-10-05] MEDS: BISOPROLOL 5 MG TABLET PO SCH (21:00)
[2021-10-05] MEDS ORDERED: ROSUVASTATIN 10 MG TABLET PO SCH (21:00)
[2021-10-05] MEDS ORDERED: allopurinoL 300 MG TABLET PO SCH (21:00)
[2021-10-06] MEDS: SODIUM CHLORIDE 0.45% 1,000 ML IV SCH ×3 (04:25→14:12)
[2021-10-06] MEDS: ENOXAPARIN 80 MG/0.8 ML SYRINGE SUBCUT SCH (05:21)
[2021-10-06] MEDS: NITROGLYCERIN 2% OINT 1 INCH/GM PACK TOP SCH ×2 (07:56→14:10)
[2021-10-06] MEDS ORDERED: ASPIRIN EC 81 MG TABLET PO SCH (09:00)
[2021-10-06] MEDS ORDERED: amLODIPine 5 MG TABLET PO SCH (09:00)
[2021-10-06] MEDS ORDERED: MULTIVITAMIN (CENTRUM) TABLET PO SCH (09:00)
[2021-10-06] MEDS ORDERED: CYANOCOBALAMIN 500 MCG TABLET PO SCH (09:00)
[2021-10-06] MEDS ORDERED: COLCHICINE 0.6 MG CAPSULE PO SCH (09:00)
[2021-10-06] MEDS ORDERED: MAGNESIUM OXIDE 400 MG TABLET PO SCH (09:00)
[2021-10-06] MEDS ORDERED: CLOPIDOGREL 75 MG TABLET PO SCH (09:00)
[2021-10-06] MEDS: GABAPENTIN 100 MG CAPSULE PO SCH ×2 (10:38→15:46)
[2021-10-06] MEDS: BISOPROLOL 5 MG TABLET PO SCH (10:39)
[2021-10-06] MEDS: ISOSORBIDE MONONITRATE 20 MG TABLET PO SCH ×2 (10:39→15:46)
[2021-10-06 12:57] VITALS: BP 111/54
[2021-10-06] MEDS ORDERED: RANOLAZINE 500 MG TABLET PO SCH (21:00)
[2021-10-07] MEDS ORDERED: PANTOPRAZOLE 40 MG TABLET PO SCH (06:30)
[2021-10-07] MEDS ORDERED: amLODIPine 5 MG TABLET PO SCH (09:00)
== END 2021-10-06 16:59 | disposition home or self-care (01) ==
LOC: N.ED 13:43 → N.EDINP 13:43 → N.TELES 18:30
PROVIDERS: ADMIT Internal Medicine Cardiovascular Disease; ATTEND Internal Medicine Cardiovascular Disease